=== PATIENT | female | born 1990 | race Caucasian/White ===

== ENCOUNTER → 2017-06-02 | Outpatient (CLI) | payer OTHER | LOC: M LRY 14:14 | DX: Z36.89 Encounter for other specified antenatal screening (principal); Z3A.00 Weeks of gestation of pregnancy not specified | CPT/HCPCS: 76811 ==

== ENCOUNTER → 2017-07-12 | Outpatient (CLI) | payer OTHER | LOC: M RAD 17:27 | DX: Z36.9 Encounter for antenatal screening, unspecified (principal); Z3A.30 30 weeks gestation of pregnancy | CPT/HCPCS: 76816 ==

== ENCOUNTER → 2017-08-19 | Outpatient (REF) | payer OTHER, MEDICAID ==
[2017-08-19 13:51] LABS: SLIDE REVIEW Report; SOURCE PERIPHERAL SMEAR
[2017-08-19 13:52] LABS: REASON FOR REVIEW PLATELET MORPHOLOGY
[2017-08-19 14:21] LABS: C REACTIVE PROTEIN QUANTITATIV 0.46 MG/DL (0.00-0.30); FERRITIN 5 NG/ML (8-252); IRON (FE) 57 UG/DL (50-170); PERCENT SATURATION 9.8 % (13.2-45.0); TOTAL IRON BINDING CAPACITY 581 UG/DL (250-450)
== END ==
LOC: M LAB REF 13:29
DX: D47.3 Essential (hemorrhagic) thrombocythemia (principal); D72.829 Elevated white blood cell count, unspecified; D64.9 Anemia, unspecified

== ENCOUNTER 2017-09-08 22:31 | Inpatient (IN) | payer OTHER, MEDICAID ==
[2017-09-08 23:10] LABS: HEMATOCRIT 32.3 % (36.0-47.0); HEMOGLOBIN 10.4 g/dl (12.0-15.5); MEAN CORPUSCULAR HEMOGLOBIN 28.4 pg (27.0-33.0); MEAN CORPUSCULAR HGB CONC 32.2 g/dl (32.0-36.5); MEAN CORPUSCULAR VOLUME 88.3 fl (80.0-96.0); PLATELET COUNT, AUTOMATED 404 10^3/uL (150-450); RED BLOOD COUNT 3.66 10^6/uL (4.00-5.40); RED CELL DISTRIBUTION WIDTH 16.3 % (11.5-14.5); WHITE BLOOD COUNT 26.6 10^3/uL (4.0-10.0)
[2017-09-08] MEDS: OXYTOCIN DRIP 30 UNITS in APPROPRIATE DILUENT 1 EA IV (23:22)
[2017-09-08] MEDS ORDERED: RHOGAM 300 MCG (1500 IU) INJ (J2790) IM (23:30)
[2017-09-08] MEDS ORDERED: METHYLERGONOVINE MALEATE 0.2 MG TAB PO (23:30)
[2017-09-08] MEDS ORDERED: DOCUSATE SODIUM 100 MG CAP PO (23:30)
[2017-09-08] MEDS ORDERED: ACETAMINOPHEN 500 MG TAB PO (23:30)
[2017-09-08] MEDS ORDERED: ANUSOL HC CREAM 30GM TOP (23:30)
[2017-09-08] MEDS ORDERED: DIBUCAINE 1% OINTMENT 30GM TOP (23:30)
[2017-09-09 00:32] LABS: HBSAG L&D NEGATIVE (NEGATIVE)
[2017-09-09 00:49] LABS: AMPHETAMINES URINE REFLEX NEGATIVE (NEGATIVE); BARBITURATES URINE REFLEX NEGATIVE (NEGATIVE); BENZODIAZEPINES URINE REFLEX NEGATIVE (NEGATIVE); CANNABINOIDS URINE REFLEX NEGATIVE (NEGATIVE); COCAINE METABOLITE URINE REFLE NEGATIVE (NEGATIVE); METHADONE URINE REFLEX NEGATIVE (NEGATIVE); OPIATES URINE REFLEX NEGATIVE (NEGATIVE); PHENCYCLIDINE URINE REFLEX NEGATIVE (NEGATIVE)
[2017-09-09] MEDS: PRENATAL VITAMINS CHEWABLE TABLET PO (09:20)
[2017-09-09] MEDS: IBUPROFEN 800 MG TAB PO (09:21)
[2017-09-10] MEDS: PRENATAL VITAMINS CHEWABLE TABLET PO (07:34)
[2017-09-10] MEDS: MEASLES,MUMPS,RUBELLA VACCINE INJ (MMR-II) (90707) SC (09:02)
== END 2017-09-10 09:20 | disposition home or self-care (01) | DRG 561 ==
LOC: M LDI 22:31 → M OBS 09-09 11:56
PROVIDERS: Advanced Practice Midwife
DX: Z39.0 Encounter for care and examination of mother immediately after delivery (principal); F17.200 Nicotine dependence, unspecified, uncomplicated; O09.33 Supervision of pregnancy with insufficient antenatal care, third trimester; Z3A.38 38 weeks gestation of pregnancy

== ENCOUNTER 2019-12-25 18:11 | Emergency (ER) | payer OTHER ==
[~2019-12-25] VITALS: Ht 160 cm; Wt 79.4 kg
[~2019-12-25 18:11] MED LIST: MOTR200T44 PO; PRENTAB55 PO; TYLE325T5 PO
[2019-12-25 20:22] VITALS: BP 129/74
== END 2019-12-25 20:24 | disposition home or self-care (01) ==
LOC: M ED 18:11
DX: S02.2XXB Fracture of nasal bones, initial encounter for open fracture (principal); Y04.8XXA Assault by other bodily force, initial encounter; Y92.019 Unspecified place in single-family (private) house as the place of occurrence of the external cause; F17.210 Nicotine dependence, cigarettes, uncomplicated; Z91.040 Latex allergy status